=== PATIENT | female | born 1985 | race African-American/Black ===

== ENCOUNTER → 2018-06-19 | Outpatient (REF) | payer BC | LOC: M LAB REF 16:46 | DX: J02.9 Acute pharyngitis, unspecified (principal) | CPT/HCPCS: 87430 ==

== ENCOUNTER → 2019-02-21 | Outpatient (CLI) | payer BC ==
--- NOTE | 2019-02-21 13:22 | REP ---
Clinical: Right lower quadrant pelvic pain. IUD position . Technique: Transabdominal pelvic ultrasound followed by transvaginal examination for better evaluation of the endometrium and adnexa with color Doppler evaluation of the ovaries. Findings: Bladder is unremarkable and measures 8.5 x 3.7 x 3.1 cm . Heterogeneous mildly enlarged uterus measures 9.8 x 5.8 x 6.3 cm and includes 3.6 x 2.6 x 3.5 cm posterior fibroid. The endometrial complex measures 5.2 mm thickness. Ovaries demonstrate normal vascularity without torsion. Right ovary measures 7.2 x 3.7 x 3.3 cm (RI = 0.53) and includes two complex presumed hemorrhagic physiologic cysts measuring 3.2 x 3.1 x 3.6 cm and 2.3 x 2.3 x 3.3 cm. The left ovary measures 4.5 x 2.7 x 3.3 cm (RI = 0.68). No pelvic free fluid or adnexal mass lesion Impression: 1. Heterogeneous uterus with posterior degenerating fibroid. 2. Right ovary includes complex cysts likely physiologic hemorrhagic cysts. Consider reevaluation in 4-6 weeks to evaluate for resolution. Electronically Signed by Grayson Rush MD 02/21/2019 01:13 P
== END ==
LOC: M RAD 11:49
PROVIDERS: ATTEND Nurse Practitioner Women's Health
DX: Z30.431 Encounter for routine checking of intrauterine contraceptive device (principal); N83.291 Other ovarian cyst, right side; R10.31 Right lower quadrant pain; D25.9 Leiomyoma of uterus, unspecified

== ENCOUNTER → 2019-09-04 | Outpatient (REF) | payer BC ==
[2019-09-04 15:49] LABS: BASO % 0.5 % (0.0-1.0); EOS # 0.1 10^3/uL (0.0-0.5); EOS % 2.4 % (0.0-3.0); HEMATOCRIT 37.3 % (36.0-47.0); LYMPH # 1.7 10^3/uL (1.5-5.0); LYMPH % 44.6 % (24.0-44.0); MEAN CORPUSCULAR HEMOGLOBIN 28.4 pg (27.0-33.0); MEAN CORPUSCULAR HGB CONC 32.2 g/dl (32.0-36.5); MEAN CORPUSCULAR VOLUME 88.2 fl (80.0-96.0); MONO # 0.3 10^3/uL (0.0-0.8); MONO % 8.3 % (0.0-5.0); NEUTROPHILS # 1.6 10^3/uL (1.5-8.5); NEUTROPHILS % 43.9 % (36.0-66.0); PLATELET COUNT, AUTOMATED 209 10^3/uL (150-450); RED BLOOD COUNT 4.23 10^6/uL (4.00-5.40); WHITE BLOOD COUNT 3.7 10^3/uL (4.0-10.0)
[2019-09-04 16:22] LABS: ALBUMIN 4.4 GM/DL (3.2-5.2); ALT/SGPT 11 U/L (12-78); BILIRUBIN,TOTAL 0.5 MG/DL (0.2-1.0); BLOOD UREA NITROGEN 10 MG/DL (7-18); CALCIUM LEVEL 9.1 MG/DL (8.5-10.1); CARBON DIOXIDE LEVEL 25 MEQ/L (21-32); CHLORIDE LEVEL 104 MEQ/L (98-107); CHOLESTEROL LEVEL 211 MG/DL (<200); CHOLESTEROL RISK RATIO 3.014 (<5); CREATININE FOR GFR 0.74 MG/DL (0.55-1.30); GLOMERULAR FILTRATION RATE > 60.0 (>60); GLUCOSE, FASTING 73 MG/DL (70-100); HDL CHOLESTEROL 70 MG/DL (>40); LDL CHOLESTEROL 128 MG/DL (<100); NON-HDL-C 141 MG/DL; POTASSIUM SERUM 3.7 MEQ/L (3.5-5.1); SODIUM LEVEL 138 MEQ/L (136-145); TOTAL PROTEIN 7.7 GM/DL (6.4-8.2); TRIGLYCERIDES LEVEL 63 MG/DL (<150)
== END ==
LOC: M LABDRAW1 14:25
DX: Z00.00 Encounter for general adult medical examination without abnormal findings (principal)

== ENCOUNTER → 2020-03-13 | Outpatient (REF) | payer BC ==
[2020-03-13 14:58] LABS: APPEARANCE, URINE CLEAR (CLEAR); BACTERIA, URINE AUTO 1+ (NEGATIVE); BILIRUBIN, URINE AUTO NEGATIVE (NEGATIVE); BLOOD, URINE BLOOD 2+ (NEGATIVE); COLOR, URINE STRAW (YELLOW); GLUCOSE, URINE (UA) AUTO NEGATIVE (NEGATIVE); KETONE, URINE AUTO NEGATIVE (NEGATIVE); LEUKOCYTE ESTERASE, URINE AUTO NEGATIVE (NEGATIVE); NITRITE, URINE AUTO NEGATIVE (NEGATIVE); PROTEIN, URINE AUTO NEGATIVE (NEGATIVE); RBC, URINE AUTO 0 /HPF (0-3); SPECIFIC GRAVITY URINE AUTO 1.002 (1.002-1.035); SQUAMOUS EPITHELIAL CELL UR AU 2 /HPF (0-6); UROBILINOGEN, URINE AUTO 0.2 mg/dL (0.0-2.0); WBC, URINE AUTO 1 /HPF (0-3)
== END ==
LOC: M LAB REF 14:27
PROVIDERS: ATTEND Physician Assistant Medical
DX: N39.0 Urinary tract infection, site not specified (principal)